=== PATIENT | female | born 1985 | race Caucasian/White ===

== ENCOUNTER → 2016-12-31 | Outpatient (CLI) | payer BC ==
[~2016-12-31] MED LIST: CIPR2.5D OD; FERR325T36 PO; NAPR250T34 PO; NORE0.354 PO; PNV1TABL9 PO; SERT50TA PO
[2016-12-31 15:29] VITALS: BP 121/77
--- NOTE | 2016-12-31 15:29 | Urgent Care T Sheet Gen (E) ---
Intake General Temperature (Fahrenheit): 98.7 Pulse: 63 Blood Pressure Systolic: 121 Blood Pressure Diastolic: 77 Respirations: 20 SPO2: 98 Description of Symptoms Patient presents with R eye redness and swelling since yesterday. Noticed it along the nasal aspect of the eye. States there is some purulent drainage and the eye is tearing constantly. Feels gritty. Some blurred vision however the patient doesn't know if it is due to the infection or to the fact that she is wearing an old pair of glasses with incorrect prescription. No eye drops. No other symptoms such as nasal congestion or allergies. History of Present Illness Allergies: Coded Allergies: No Known Drug Allergies (Unverified , 01/27/16) Home Meds Active Scripts Norethindrone (Nor-Q-D)0.35 Mg Tablet0.35 Mg PO DAILY #1 TAB Prov:JOSIAS QUIROZ MD 01/29/16 Ferrous Sulfate (Iron)325 Mg [id number] Mg PO DAILY #60 TAB Prov:JOSIAS QUIROZ MD 01/29/16 Naproxen 250 Mg [id number] Mg PO BID WITH MEALS PRN Pain/Cramping #20 TAB Prov:JOSIAS QUIROZ MD 01/29/16 Reported Medications Sertraline HCl 50 Mg [id number] Mg PO DAILY NS 01/27/16 Pnv Cmb#21/Iron/Folic Acid ( Complete Caplet)1 Each Tablet1 Each PO DAILY NS 01/27/16 Respiratory Constitutional Symptoms: No syptoms reported EENTM: Eye pain Blurred vision Eye tearingNo Ear pain, No Nose Congestion Respiratory: No symptoms reported Cardiovascular: No symptoms reported Gastrointestinal/Abdominal: No symptoms reported Estimated Date of Delivery: 02/02/2016 All Other Systems Reviewed Remaining Systems: All other systems reviewed with negative findings Past Mjayykk-Pldtls-Zawpke Hx Patient's Social History Alcohol Use: Occasionally Uses Smoking Status: Never smoker Reproductive System : 1 Living Children: 0 HIV/AIDS: Negative Physical Exam Physical Exam General Appearance: WD/WN No apparent distress Eyes, Ears, Nose, Throat Ex: PERRL/EOMI (R conjunctiva is slightly red. some swelling and redness is noted along the surrounding tissues, keri along the nasal aspect of the eye.) TMs normal Pharynx normal Other (nose is clear.) Neck Exam: Supple Lymphadenopathy Respiratory Exam: Lungs clear Normal breath sounds Cardiovascular Exam: Regular rate, rhythm Departure Urgent Care Impression Impression: Primary Impression: Eye infection Qualified Code: H44.001 - Unspecified purulent endophthalmitis, right eye Departure Disposition: 01 HOME OR SELF-CARE Condition: Stable Referrals: MYRNA THAPA MD (PCP) Additional Instructions: With the patient being a contact wearer, I have started her on Cipro ophth drops. Instructed her to wear her glasses tomorrow and then may resume wearing her contacts on . Warm compress to the eye. Return as needed Patient understands DC instructions. All questions were answered. Scripts Ciprofloxacin HCl (Ciloxan 0.3% Ophthalmic Drops)2.5 Ml Drops2 Drops OD QID #1 BTL 2 drops in R eye QID x 7 days. Prov:VENUS ROBERTS 12/31/16 End of report . VENUS ROBERTS December 31, 2016 15:29
== END ==
LOC: MHUC 15:10
PROVIDERS: ATTEND Physician Assistant
DX: H44.001 Unspecified purulent endophthalmitis, right eye (principal)
CPT/HCPCS: 99213